=== PATIENT | male | born 1945 | race African-American/Black ===

== ENCOUNTER 2016-03-07 09:49 | Day surgery (SDC) | payer OTHER ==
[~2016-03-07] VITALS: Ht 185.4 cm; Wt 108.0 kg
[~2016-03-07 09:49] MED LIST: AMLODIPINE BESY10 MG PO; BENICAR40 MG PO; COMBIGAN O20 DROP/5 BOTH EYES; CYANOCOBALAM1000 MCG PO; ERGOCALCIF50000 UNIT PO; LO-DOSE ASPIRIN81 M2 PO; LUMIGAN 0.50 DROP/22 BOTH EYES; METOPROLOL SUCC25 MG PO; SIMVASTATIN20 MG PO
[2016-03-07 11:30] VITALS: BP 183/101
[2016-03-07 11:46] LABS: POINT-OF-CARE METER ID UU14174212
[2016-03-07 15:09] VITALS: BP 153/91
[2016-03-07 16:05] VITALS: BP 140/92
== END 2016-03-07 16:33 | disposition home or self-care (01) ==
LOC: SDC 09:49
PROVIDERS: Orthopaedic Surgery
PROC: 0LQ10ZZ Repair Right Shoulder Tendon, Open Approach (ICD-10-PCS; principal; 2016-03-07)
DX: M75.111 Incomplete rotator cuff tear or rupture of right shoulder, not specified as traumatic (principal); I10 Essential (primary) hypertension; E11.9 Type 2 diabetes mellitus without complications; M19.90 Unspecified osteoarthritis, unspecified site
CPT/HCPCS: 82948; J0330; J0690; J2250; J2405; J2795; J3010; Q4126